=== PATIENT | male | born 1970 ===

== ENCOUNTER 2017-10-08 19:28 | Emergency (ER) | payer SELFPAY ==
[2017-10-08 20:33] LABS: Basophils # (Auto) 0.1 K/mm3 (0.0-0.1); Basophils % (Auto) 0.6 % (0.0-1.8); Eosinophils # (Auto) 0.1 K/mm3 (0.0-0.4); Eosinophils % (Auto) 0.5 % (0.0-4.3); Hematocrit 50.4 % (35.5-45.6); Hemoglobin 16.7 gm/dl (11.8-15.2); Lymphocytes # (Auto) 2.4 K/mm3 (1.2-5.4); Lymphocytes % (Auto) 18.4 % (13.4-35.0); Mean Corpuscular HGB Conc 33 % (32-34); Mean Corpuscular Hemoglobin 27 pg (28-32); Mean Corpuscular Volume 80 fl (84-94); Monocytes % (Auto) 8.2 % (0.0-7.3); Platelet Count 442 K/mm3 (140-440); Red Blood Count 6.32 M/mm3 (3.65-5.03); Red Cell Distribution Width 13.4 % (13.2-15.2)
[2017-10-08 20:48] LABS: Alanine Aminotransferase 40 units/L (7-56); Albumin 3.7 g/dL (3.9-5); BUN/Creatinine Ratio 26; Blood Urea Nitrogen 13 mg/dL (9-20); Hemolysis Index 13
--- NOTE | 2017-10-08 22:43 | Cat Scan Report ---
FINAL REPORT PROCEDURE: CT HEAD/BRAIN WO CON TECHNIQUE: Computerized tomography of the head was performed without contrast material. HISTORY: altered mental status COMPARISON: No prior studies are available for comparison. FINDINGS: Skull and scalp: Normal. Paranasal sinuses: Normal. Ventricles and subarachnoid spaces: Dilated lateral and 3rd ventricles. The 4th ventricle is narrowed and displaced toward the left. Cerebrum: No evidence of hemorrhage, acute infarction or mass . Cerebellum and brainstem: There is 4.0 x 2.4 cm diminished density mass of the right cerebellum. There is surrounding mass effect of the deem. There is displacement and distortion of the 4th ventricle. Vasculature: Normal. Comments: None. IMPRESSION: Right cerebellar mass. There is surrounding mass effect with deformity and displacement of the right cerebellar hemisphere. There effacement of the 4th ventricle with hydrocephalus and dilated lateral and 3rd ventricles. No hemorrhage
--- NOTE | 2017-10-09 01:17 | Emergency Department Report ---
ED General Adult HPI - General Chief complaint: Altered Mental Status Stated complaint: BODY PAIN (+etoh) Time Seen by Provider: 10/08/17 21:53 Source: patient, family Mode of arrival: Ambulatory Limitations: Language Barrier (I used our ED staff Syriac-speaking ED staff member to provide language interpretation.) - History of Present Illness Initial comments: Mr. Lopez is a healthy 47-year-old male who presents with vomiting and difficulty walking since Thursday. He does not drink alcohol. He does use synthetic marijuana occasionally. Denies headache. Denies visual changes. Denies paralysis. Gradual onset of symptoms. He denies any confusion or disorientation. Mother denies any confusion. He does not smoke cigarettes. Does not drink alcohol. 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 - Related Data Allergies Allergy/AdvReac Type Severity Reaction Status Date / Time No Known Allergies Allergy Unverified 10/08/17 19:36 ED Review of Systems ROS: Stated complaint: BODY PAIN (+etoh) Other details as noted in HPI Comment: All other systems reviewed and negative Constitutional: denies: fever, malaise Respiratory: denies: cough Cardiovascular: denies: chest pain ED Past Medical Hx - Past Medical History Previous Medical History?: No - Surgical History Past Surgical History?: No - Social History Smoking Status: Current Every Day Smoker Substance Use Type: Alcohol, Cocaine, Marijuana, Methamphetamines, Other ED Physical Exam - General Limitations: Language Barrier General appearance: alert, in no apparent distress - Head Head exam: Present: atraumatic, normocephalic - Eye Eye exam: Present: normal appearance, PERRL - ENT ENT exam: Present: mucous membranes moist - Neck Neck exam: Present: normal inspection. Absent: tenderness, meningismus - Respiratory Respiratory exam: Present: normal lung sounds bilaterally. Absent: respiratory distress, wheezes, rales, rhonchi - Cardiovascular Cardiovascular Exam: Present: regular rate, normal rhythm. Absent: systolic murmur, diastolic murmur, rubs, gallop - GI/Abdominal GI/Abdominal exam: Present: soft, normal bowel sounds. Absent: distended, tenderness, guarding, rebound - Rectal Rectal exam: Present: deferred - Extremities Exam Extremities exam: Present: normal inspection - Back Exam Back exam: Present: normal inspection - Neurological Exam Neurological exam: Present: alert, oriented X3, CN II-XII intact. Absent: motor sensory deficit - Psychiatric Psychiatric exam: Present: normal affect, normal mood - Skin Skin exam: Present: warm, dry, intact, normal color. Absent: rash ED Course Vital Signs 10/08/17 10/08/17 10/08/17 19:36 21:30 22:00 Temperature 98.4 F 98.3 F Pulse Rate 101 H 86 83 Respiratory 20 17 14 Rate Blood Pressure 261/131 210/120 Blood Pressure 204/124 [Left] O2 Sat by Pulse 95 100 99 Oximetry 10/08/17 10/08/17 23:00 23:30 Temperature Pulse Rate 98 H 86 Respiratory 18 13 Rate Blood Pressure 180/106 185/96 Blood Pressure [Left] O2 Sat by Pulse 98 98 Oximetry ED Medical Decision Making - Lab Data Result diagrams: 10/08/17 20:16 10/08/17 20:16 Abnormal Lab Results 10/08/17 10/08/17 10/08/17 20:16 20:16 20:16 WBC 12.8 H RBC 6.32 H Hgb 16.7 H Hct 50.4 H MCV 80 L MCH 27 L MCHC 33 RDW 13.4 Plt Count 442 H Lymph % (Auto) 18.4 Overton % (Auto) 8.2 H Eos % (Auto) 0.5 Baso % (Auto) 0.6 Lymph # 2.4 Overton # 1.0 H Eos # 0.1 Baso # 0.1 Seg Neutrophils % 72.3 H Seg Neutrophils # 9.2 H Sodium 135 L Potassium 4.4 Chloride 97.5 L Carbon Dioxide 22 Anion Gap 20 BUN 13 Creatinine 0.5 L Estimated GFR > 60 BUN/Creatinine Ratio 26 Glucose 132 H Calcium 9.0 Total Bilirubin 0.20 AST 23 ALT 40 Alkaline Phosphatase 140 H Total Creatine Kinase Total Protein 7.4 Albumin 3.7 L Albumin/Globulin Ratio 1.0 TSH 1.530 Plasma/Serum Alcohol 10/08/17 10/08/17 20:16 21:59 WBC RBC Hgb Hct MCV MCH MCHC RDW Plt Count Lymph % (Auto) Overton % (Auto) Eos % (Auto) Baso % (Auto) Lymph # Overton # Eos # Baso # Seg Neutrophils % Seg Neutrophils # Sodium Potassium Chloride Carbon Dioxide Anion Gap BUN Creatinine Estimated GFR BUN/Creatinine Ratio Glucose Calcium Total Bilirubin AST ALT Alkaline Phosphatase Total Creatine Kinase 145 Total Protein Albumin Albumin/Globulin Ratio TSH Plasma/Serum Alcohol < 0.01 Vital Signs - 24 hr 10/08/17 10/08/17 10/08/17 19:36 21:30 22:00 Temperature 98.4 F 98.3 F Pulse Rate 101 H 86 83 Respiratory 20 17 14 Rate Blood Pressure 261/131 210/120 Blood Pressure 204/124 [Left] O2 Sat by Pulse 95 100 99 Oximetry 10/08/17 10/08/17 23:00 23:30 Temperature Pulse Rate 98 H 86 Respiratory 18 13 Rate Blood Pressure 180/106 185/96 Blood Pressure [Left] O2 Sat by Pulse 98 98 Oximetry - Medical Decision Making Mr. Jensen presents with vomiting and ataxia. He has cerebellar mass 4 cm causing hydrocephalus. I spoke with Melfa neurosurgeon Dr. Gambino. Melfa Neurointensivist was also conferenced on the call. Dr. Gambino accepted the patient. He will be transferred to [facility]. Transferred in stable condition with noted elevated blood pressure. In order to optimize cerebral perfusion, I will not decrease to elevated blood pressure with medication. Patient is currently GCS 15. He understands his diagnosis. He understands that he will be transferred to another hospital. 45 minutes of critical care time excluding procedures were used int he care of the patient. Patient required multiple assessments and multiple interventions. Discussed care and treatment plan with mother at the bedside. Critical care attestation.: If time is entered above; I have spent that time in minutes in the direct care of this critically ill patient, excluding procedure time. ED Disposition Clinical Impression: Cerebellar mass Disposition: [id number]/TX-[id number] ANOTHER TYPE HLTHCARE Is pt being admited?: No Does the pt Need Aspirin: No Condition: Stable Time of Disposition: 01:00
[2017-10-09 04:24] VITALS: BP 126/61
== END 2017-10-09 03:45 | disposition other institution (70) ==
LOC: EDBD → ED 19:28
DX: G93.89 Other specified disorders of brain (principal); F17.200 Nicotine dependence, unspecified, uncomplicated; F12.10 Cannabis abuse, uncomplicated; F15.10 Other stimulant abuse, uncomplicated; F14.10 Cocaine abuse, uncomplicated
CPT/HCPCS: 36415; 70450; 80053; 82550; 84443; 85025; 93005; 93010; 99285; G0480; 80320